=== PATIENT | male | born 1980 | race Caucasian/White ===

== ENCOUNTER 2019-08-15 16:50 | Emergency (ER) | payer MEDICARE, OTHER ==
[2019-08-15 16:54] VITALS: RESP 16; TEMP 97.9
--- NOTE | 2019-08-15 17:16 | ED ---
Chest Pain HPI - General Chief Complaint: Chest Pain Stated Complaint: chest pain Time Seen by Provider: 08/15/19 16:50 Source: EMS, RN notes reviewed Mode of arrival: EMS Limitations: no limitations - History of Present Illness Initial Comments: this is a 30-year-old male who presents with complaints of sharp he states initially was 8 out of 10 severity now is about 7 does get somewhat worse with pushing over that area of his chest he denies any recent cough and sneezing fevers chills nausea vomiting sweats any heavy lifting he states he was at rest Sitting in his chair when it occurred. Other complaints or modifying factorsstabbing left-sided chest pain started about 2 hours prior to arrival. MD Complaint: chest pain - Related Data Home Medications Medication Instructions Recorded Confirmed Lisinopril [Zestril] 10 mg PO DAILY 08/15/19 08/15/19 Previous Rx's Medication Instructions Recorded Ibuprofen 800 mg PO Q6HR PRN #20 tablet 08/15/19 Allergies Allergy/AdvReac Type Severity Reaction Status Date / Time No Known Allergies Allergy Verified 08/15/19 17:55 Review of Systems ROS Statement: Those systems with pertinent positive or pertinent negative responses have been documented in the HPI. ROS Other: All systems not noted in ROS Statement are negative. EKG Findings - EKG Results: EKG: interpreted by MICHAEL, sinus rhythm (Normal sinus rhythm a 76. 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 History of Any Multi-Drug Resistant Organisms: None Reported Past Surgical History: Hernia Repair, Orthopedic Surgery Additional Past Surgical History / Comment(s): LT KNEE SCOPE Past Anesthesia/Blood Transfusion Reactions: No Reported Reaction, Family History of Problems w/ Anesthesia Additional Past Anesthesia/Blood Transfusion Reaction / Comment(s): HIS FATHER HAS DIFFICULTY WAKING UP POST-OP Past Psychological History: No Psychological Hx Reported Smoking Status: Never smoker Past Alcohol Use History: None Reported Past Drug Use History: None Reported - Past Family History Father Family Medical History: Deep Vein Thrombosis (DVT), Pulmonary Embolus Mother Family Medical History: Cancer Additional Family Medical History / Comment(s): BREAST CANCER General Exam - General Exam Comments Initial Comments: This is a well-developed well-nourished awake alert oriented 3 male Limitations: no limitations General appearance: alert, anxious Head exam: Present: atraumatic, normocephalic, normal inspection Eye exam: Present: normal appearance, PERRL, EOMI. Absent: scleral icterus, conjunctival injection, periorbital swelling ENT exam: Present: normal exam, mucous membranes moist Neck exam: Present: normal inspection, full ROM. Absent: tenderness, meningismus, lymphadenopathy Respiratory exam: Present: normal lung sounds bilaterally, chest wall tenderness (Reproducible tenderness palpation over left costal sternal margin no step-off or crepitation palpation does reproduce the patient's pain). Absent: respiratory distress, wheezes, rales, rhonchi, stridor Cardiovascular Exam: Present: regular rate, normal rhythm, normal heart sounds. Absent: systolic murmur, diastolic murmur, rubs, gallop, clicks GI/Abdominal exam: Present: soft, normal bowel sounds. Absent: distended, tenderness, guarding, rebound, rigid Extremities exam: Present: normal inspection, full ROM, normal capillary refill. Absent: tenderness, pedal edema, joint swelling, calf tenderness Back exam: Present: normal inspection Neurological exam: Present: alert, oriented X3, CN II-XII intact Psychiatric exam: Present: normal affect, normal mood Skin exam: Present: warm, dry, intact, normal color. Absent: rash Course Vital Signs 08/15/19 08/15/19 16:51 18:50 Temperature 97.9 F Pulse Rate 76 67 Respiratory 16 16 Rate Blood Pressure 144/98 126/82 O2 Sat by Pulse 99 96 Oximetry Chest Pain MDM - MDM I did review the imaging and report no acute findings. Patient is feeling improved after IV fluids and pain medication the presentation is consistent with costochondritis/musculoskeletal chest pain. Patient will be discharged on appropriate medication we did discuss this he is in agreement. He also is feeling much improved Disposition Clinical Impression: Costochondritis, Chest wall syndrome Disposition: HOME SELF-CARE Condition: Good Instructions (If sedation given, give patient instructions): Costochondritis (ED) Additional Instructions: Prescriptions sent to your preferred [facility] pharmacy Prescriptions: Ibuprofen 800 mg PO Q6HR PRN #20 tablet PRN Reason: Pain Is patient prescribed a controlled substance at d/c from ED?: No Referrals: Deyanira Mishra DO [Primary Care Provider] - 1-2 days
[2019-08-15 17:17] LABS: Basophils % (A) 0 %; Eosinophils # (A) 0.2 k/uL (0-0.7); Eosinophils % (A) 2 %; HCT 45.4 % (39.0-53.0); HGB 14.8 gm/dL (13.0-17.5); Lymphocytes # (A) 2.1 k/uL (1.0-4.8); Lymphocytes % (A) 26 %; MCH 28.8 pg (25.0-35.0); MCHC 32.5 g/dL (31.0-37.0); MCV 88.5 fL (80.0-100.0); Mean Platelet Volume 7.7; Monocytes # (A) 0.4 k/uL (0-1.0); Monocytes % (A) 4 %; Neutrophils # (A) 5.2 k/uL (1.3-7.7); Neutrophils % (A) 65 %; Platelet Count 213 k/uL (150-450); RBC 5.13 m/uL (4.30-5.90); RDW 13.2 % (11.5-15.5)
[2019-08-15 17:25] LABS: ALT 16 U/L (4-49); AST 23 U/L (17-59); African American GFR (CKD) >90 (>60 ml/min/1.73 sqM); Albumin 4.1 g/dL (3.5-5.0); Alkaline Phosphatase 74 U/L (38-126); Anion Gap 6 mmol/L; Blood Urea Nitrogen 6 mg/dL (9-20); Calcium 9.3 mg/dL (8.4-10.2); Carbon Dioxide 27 mmol/L (22-30); Chloride 106 mmol/L (98-107); Creatine Kinase 88 U/L (55-170); Glucose 93 mg/dL (74-99); Non-African American GFR(CKD) >90 (>60 ml/min/1.73 sqM); Potassium 3.9 mmol/L (3.5-5.1); Sodium 139 mmol/L (137-145); Total Bilirubin 1.7 mg/dL (0.2-1.3)
--- NOTE | 2019-08-15 17:50 | XR ---
EXAMINATION TYPE: XR chest 2V DATE OF EXAM: 08/15/2019 COMPARISON: Chest x-ray August 31, 2012 HISTORY: Chest pain radiating to left arm. TECHNIQUE: Frontal and lateral views of the chest are obtained. FINDINGS: There is no focal air space opacity, pleural effusion, or pneumothorax seen. The cardiac silhouette size is within normal limits. The osseous structures are intact. Overlying EKG leads red emonstrated. IMPRESSION: No acute process. No significant change from prior.
[2019-08-15 17:59] LABS: D-Dimer <0.17 mg/L FEU (<0.60); Partial Thromboplastin Time 26.2 sec (22.0-30.0); Prothrombin Time 10.1 sec (9.0-12.0)
[2019-08-15] MEDS ORDERED: SODIUM CHLORIDE 0.9% 1,000 ML IV STA (18:49)
[2019-08-15 18:51] VITALS: BP 126/82; PULSE 67
== END 2019-08-15 19:46 | disposition home or self-care (01) ==
LOC: EC 16:50
DX: M94.0 Chondrocostal junction syndrome [Tietze] (principal); M10.9 Gout, unspecified; M62.81 Muscle weakness (generalized); Z99.89 Dependence on other enabling machines and devices; Z98.890 Other specified postprocedural states
CPT/HCPCS: 36415; 71046; 80053; 82550; 83690; 83735; 83880; 84484; 85025; 85379; 85610; 85730; 93005; 96360; 99285

== ENCOUNTER 2019-09-04 21:45 | Emergency (ER) | payer MEDICARE, OTHER ==
[2019-09-04] MEDS ORDERED: SODIUM CHLORIDE 0.9% 1,000 ML IV STA (22:26)
[2019-09-04] MEDS ORDERED: KETOROLAC 30 MG/ML 1 ML VIAL IVP STA (22:26)
--- NOTE | 2019-09-04 22:26 | ED ---
Abdominal Pain HPI - General Chief Complaint: Abdominal Pain Stated Complaint: Abd Pain Time Seen by Provider: 09/04/19 21:55 Source: patient Mode of arrival: ambulatory Limitations: no limitations - History of Present Illness Initial Comments: Patient is a 38-year-old male with past history of Njpazjn-Ojeew-Xkbch who presents emergency room with reported left lower quadrant abdominal pain. Patient states that the pain has been present for the past week and is progressively getting worse. States it radiates into his left groin. He has associated hematuria. Denies dysuria or difficulty voiding. Does report difficulty having bowel movement. He has not attempted to take any medications at home for his symptoms. Denies any fevers or chills. No melenic stools or hematochezia. Denies any testicular pain or swelling. No concern for sexually transmitted infections. There are no other alleviating, physician and laughing factors - Related Data Home Medications Medication Instructions Recorded Confirmed Lisinopril [Zestril] 10 mg PO DAILY 08/15/19 09/04/19 Previous Rx's Medication Instructions Recorded Acetaminophen-Codeine 300-30mg 1 tab PO Q6H PRN 3 Days #12 tablet 09/05/19 [Tylenol w/codeine #3] Docusate [Colace] 100 mg PO BID #30 capsule 09/05/19 Polyethylene Glycol 3350 [Miralax] 17 gm PO DAILY #527 gm 09/05/19 Allergies Allergy/AdvReac Type Severity Reaction Status Date / Time No Known Allergies Allergy Verified 09/04/19 23:13 Review of Systems ROS Statement: Those systems with pertinent positive or pertinent negative responses have been documented in the HPI. ROS Other: All systems not noted in ROS Statement are negative. Past Medical History Past Medical History: Musculoskeletal Disorder Additional Past Medical History / Comment(s): [id number] DISEASE (MUSCL E WEAKNESS IN ARMS AND LEGS)-HE WEARS BRACES ON HIS LEGS., RECENT EPISODE OF GOUT IN HIS FOOT(STATES HE RECEIVED 2 INJECTIONS). History of Any Multi-Drug Resistant Organisms: None Reported Past Surgical History: Hernia Repair, Orthopedic Surgery Additional Past Surgical History / Comment(s): LT KNEE SCOPE Past Anesthesia/Blood Transfusion Reactions: No Reported Reaction, Family History of Problems w/ Anesthesia Additional Past Anesthesia/Blood Transfusion Reaction / Comment(s): HIS FATHER HAS DIFFICULTY WAKING UP POST-OP Past Psychological History: No Psychological Hx Reported Smoking Status: Current every day smoker Past Alcohol Use History: None Reported Past Drug Use History: None Reported - Past Family History Father Family Medical History: Deep Vein Thrombosis (DVT), Pulmonary Embolus Mother Family Medical History: Cancer Additional Family Medical History / Comment(s): BREAST CANCER General Exam Limitations: no limitations General appearance: alert, in no apparent distress Head exam: Present: atraumatic, normocephalic, normal inspection Eye exam: Present: normal appearance, PERRL, EOMI. Absent: scleral icterus, conjunctival injection, periorbital swelling ENT exam: Present: normal exam, mucous membranes moist Neck exam: Present: normal inspection. Absent: tenderness, meningismus, lymphadenopathy Respiratory exam: Present: normal lung sounds bilaterally. Absent: respiratory distress, wheezes, rales, rhonchi, stridor Cardiovascular Exam: Present: regular rate, normal rhythm, normal heart sounds. Absent: systolic murmur, diastolic murmur, rubs, gallop, clicks GI/Abdominal exam: Present: soft, normal bowel sounds. Absent: distended, tenderness, guarding, rebound, rigid Extremities exam: Present: normal inspection, full ROM, normal capillary refill. Absent: tenderness, pedal edema, joint swelling, calf tenderness Back exam: Present: normal inspection Neurological exam: Present: alert, oriented X3, CN II-XII intact Psychiatric exam: Present: normal affect, normal mood Skin exam: Present: warm, dry, intact, normal color. Absent: rash Course Vital Signs 09/04/19 09/04/19 21:51 23:38 Temperature 98.6 F 98 F Pulse Rate 97 77 Respiratory 18 16 Rate Blood Pressure 125/74 144/85 O2 Sat by Pulse 98 99 Oximetry Medical Decision Making - Medical Decision Making Upon arrival the patient is placed into room 5. A thorough history and physical exam was performed. Patient is hooked to continuous pulse ox and cardiac monitoring. Abdomen remained soft without peritoneal signs. Lab restudies were conducted the patient provides a urine sample. Urinalysis is positive for moderate blood, 127 red blood cells and few budding yeast. I originally completed a KUB on the patient which demonstrates a calculus in the left renal pelvis. The patient was then sent back for an abdominal CT which demonstrates a calculus which is significantly increased in size. This is most likely the etiology of the patient's hematuria. I did discuss the diagnosis, differential and treatment options. At this time the patient will be given a prescription for Tylenol 3's as well as final 3 starter pack for his increased pain. Did inform him that if he takes his medication he will have worsening constipation. I did recommend that he take MiraLAX and Colace in addition to this medication. Call and follow up with urology for possible surgical options of his large renal stone. Return to the emergency room for any new or worsening symptoms. Patient was in agreement treatment plan is discharged home in stable condition - Lab Data Result diagrams: 09/04/19 22:30 09/04/19 22:30 Lab Results 09/04/19 09/04/19 09/04/19 Range/Units 22:30 22:30 22:30 WBC 8.0 (3.8-10.6) k/uL RBC 5.24 (4.30-5.90) m/uL Hgb 15.1 (13.0-17.5) gm/dL Hct 46.9 (39.0-53.0) % MCV 89.6 (80.0-100.0) fL MCH 28.8 (25.0-35.0) pg MCHC 32.2 (31.0-37.0) g/dL RDW 13.4 (11.5-15.5) % Plt Count 237 (150-450) k/uL Neutrophils % 63 % Lymphocytes % 27 % Monocytes % 5 % Eosinophils % 2 % Basophils % 0 % Neutrophils # 5.0 (1.3-7.7) k/uL Lymphocytes # 2.2 (1.0-4.8) k/uL Monocytes # 0.4 (0-1.0) k/uL Eosinophils # 0.2 (0-0.7) k/uL Basophils # 0.0 (0-0.2) k/uL PT 9.9 (9.0-12.0) sec INR 1.0 (<1.2) APTT 24.7 (22.0-30.0) sec Sodium (137-145) mmol/L Potassium (3.5-5.1) mmol/L Chloride (98-107) mmol/L Carbon Dioxide (22-30) mmol/L Anion Gap mmol/L BUN (9-20) mg/dL Creatinine (0.66-1.25) mg/dL Est GFR (CKD-EPI)AfAm (>60 ml/min/1.73 sqM) Est GFR (CKD-EPI)NonAf (>60 ml/min/1.73 sqM) Glucose (74-99) mg/dL Plasma Lactic Acid Andre (0.7-2.0) mmol/L Calcium (8.4-10.2) mg/dL Total Bilirubin (0.2-1.3) mg/dL AST (17-59) U/L ALT (4-49) U/L Alkaline Phosphatase (38-126) U/L Total Protein (6.3-8.2) g/dL Albumin (3.5-5.0) g/dL Lipase (23-300) U/L Urine Color Yellow Urine Appearance Clear (Clear) Urine pH 5.5 (5.0-8.0) Ur Specific [place] 1.021 (1.001-1.035) Urine Protein Trace H (Negative) Urine Glucose (UA) Negative (Negative) Urine Ketones Trace H (Negative) Urine Blood Moderate H (Negative) Urine Nitrite Negative (Negative) Urine Bilirubin Negative (Negative) Urine Urobilinogen <2.0 (<2.0) mg/dL Ur Leukocyte Esterase Negative (Negative) Urine RBC 127 H (0-5) /hpf Urine WBC 3 (0-5) /hpf Urine Mucus Moderate H (None) /hpf Urine Yeast (Budding) Few H (None) /hpf 09/04/19 09/04/19 Range/Units 22:30 22:30 WBC (3.8-10.6) k/uL RBC (4.30-5.90) m/uL Hgb (13.0-17.5) gm/dL Hct (39.0-53.0) % MCV (80.0-100.0) fL MCH (25.0-35.0) pg MCHC (31.0-37.0) g/dL RDW (11.5-15.5) % Plt Count (150-450) k/uL Neutrophils % % Lymphocytes % % Monocytes % % Eosinophils % % Basophils % % Neutrophils # (1.3-7.7) k/uL Lymphocytes # (1.0-4.8) k/uL Monocytes # (0-1.0) k/uL Eosinophils # (0-0.7) k/uL Basophils # (0-0.2) k/uL PT (9.0-12.0) sec INR (<1.2) APTT (22.0-30.0) sec Sodium 139 (137-145) mmol/L Potassium 4.1 (3.5-5.1) mmol/L Chloride 107 (98-107) mmol/L Carbon Dioxide 24 (22-30) mmol/L Anion Gap 8 mmol/L BUN 11 (9-20) mg/dL Creatinine 0.69 (0.66-1.25) mg/dL Est GFR (CKD-EPI)AfAm >90 (>60 ml/min/1.73 sqM) Est GFR (CKD-EPI)NonAf >90 (>60 ml/min/1.73 sqM) Glucose 93 (74-99) mg/dL Plasma Lactic Acid Andre 0.9 (0.7-2.0) mmol/L Calcium 9.5 (8.4-10.2) mg/dL Total Bilirubin 1.3 (0.2-1.3) mg/dL AST 22 (17-59) U/L ALT 14 (4-49) U/L Alkaline Phosphatase 63 (38-126) U/L Total Protein 6.9 (6.3-8.2) g/dL Albumin 4.1 (3.5-5.0) g/dL Lipase 73 (23-300) U/L Urine Color Urine Appearance (Clear) Urine pH (5.0-8.0) Ur Specific [place] (1.001-1.035) Urine Protein (Negative) Urine Glucose (UA) (Negative) Urine Ketones (Negative) Urine Blood (Negative) Urine Nitrite (Negative) Urine Bilirubin (Negative) Urine Urobilinogen (<2.0) mg/dL Ur Leukocyte Esterase (Negative) Urine RBC (0-5) /hpf Urine WBC (0-5) /hpf Urine Mucus (None) /hpf Urine Yeast (Budding) (None) /hpf Disposition Clinical Impression: Left lower quadrant abdominal pain, Left renal stone Disposition: HOME SELF-CARE Condition: Stable Instructions (If sedation given, give patient instructions): Kidney Stones (ED) Additional Instructions: Please follow up with the primary care doctor. Return to the emergency room for any new or worsening symptoms Prescriptions: Docusate [Colace] 100 mg PO BID #30 capsule Polyethylene Glycol 3350 [Miralax] 17 gm PO DAILY #527 gm Acetaminophen-Codeine 300-30mg [Tylenol w/codeine #3] 1 tab PO Q6H PRN 3 Days #12 tablet PRN Reason: Pain Is patient prescribed a controlled substance at d/c from ED?: Yes When asked, does pt state using other controlled substances?: No If prescribed controlled substance>3 days was MAPS reviewed?: Prescribed <3 Days If opioid is for acute pain is fill amount 7 days or less?: Yes If Rx opioid, was Start Talking consent form obtained?: Yes Referrals: Deyanira Mishra DO [Primary Care Provider] - 1-2 days Dae Reed MD [STAFF PHYSICIAN] - 1-2 days Time of Disposition: 00:25
[2019-09-04 22:39] LABS: Basophils % (A) 0 %; Eosinophils # (A) 0.2 k/uL (0-0.7); Eosinophils % (A) 2 %; HCT 46.9 % (39.0-53.0); HGB 15.1 gm/dL (13.0-17.5); Lymphocytes # (A) 2.2 k/uL (1.0-4.8); Lymphocytes % (A) 27 %; MCH 28.8 pg (25.0-35.0); MCHC 32.2 g/dL (31.0-37.0); MCV 89.6 fL (80.0-100.0); Mean Platelet Volume 8.3; Monocytes # (A) 0.4 k/uL (0-1.0); Monocytes % (A) 5 %; Neutrophils % (A) 63 %; Platelet Count 237 k/uL (150-450); RBC 5.24 m/uL (4.30-5.90); RDW 13.4 % (11.5-15.5)
[2019-09-04 22:47] LABS: ALT 14 U/L (4-49); AST 22 U/L (17-59); African American GFR (CKD) >90 (>60 ml/min/1.73 sqM); Albumin 4.1 g/dL (3.5-5.0); Alkaline Phosphatase 63 U/L (38-126); Anion Gap 8 mmol/L; Blood Urea Nitrogen 11 mg/dL (9-20); Calcium 9.5 mg/dL (8.4-10.2); Carbon Dioxide 24 mmol/L (22-30); Chloride 107 mmol/L (98-107); Glucose 93 mg/dL (74-99); Non-African American GFR(CKD) >90 (>60 ml/min/1.73 sqM); Potassium 4.1 mmol/L (3.5-5.1); Sodium 139 mmol/L (137-145); Total Bilirubin 1.3 mg/dL (0.2-1.3); Total Protein 6.9 g/dL (6.3-8.2)
[2019-09-04 22:55] LABS: Partial Thromboplastin Time 24.7 sec (22.0-30.0); Prothrombin Time 9.9 sec (9.0-12.0)
[2019-09-04 22:57] LABS: Appearance,Urine Clear (Clear); Bilirubin,Urine Negative (Negative); Blood,Urine Moderate (Negative); Budding Yeast,Urine Few /hpf; Color,Urine Yellow; Glucose,Urine (UA) Negative (Negative); Ketones,Urine Trace (Negative); Leukocyte Esterase,Urine Negative (Negative); Mucus,Urine Moderate /hpf; Nitrite,Urine Negative (Negative); PH, Urine 5.5 (5.0-8.0); Protein,Urine Trace (Negative); RBC,Urine 127 /hpf (0-5); Specific Gravity,Urine 1.021 (1.001-1.035); Urobilinogen,Urine <2.0 mg/dL (<2.0); WBC,Urine 3 /hpf (0-5)
--- NOTE | 2019-09-04 22:59 | XR ---
EXAMINATION TYPE: XR KUB DATE OF EXAM: 09/04/2019 COMPARISON: 04/30/2012 HISTORY: Left side pain TECHNIQUE: 2 views FINDINGS: 2 views upright were obtained and show no sign of intestinal obstruction or pneumoperitoneu m. Fecal pattern is normal. There is 1 cm calculus over the left kidney. Lung bases are clear. IMPRESSION: Nonacute abdomen. Large left renal calculus significantly increased compared to old exam.
[2019-09-04 23:39] VITALS: BP 144/85; PULSE 77; RESP 16; TEMP 98
--- NOTE | 2019-09-05 00:13 | CT ---
EXAMINATION TYPE: CT abdomen pelvis w con DATE OF EXAM: 09/05/2019 COMPARISON: 05/18/2011 HISTORY: LLQ Abd Pain CT DLP: 1188.70 mGycm Automated exposure control for dose reduction was used. CONTRAST: Performed with IV Contrast, patient injected with 100 mL of Isovue 300. Images were obtained from the diaphragm to the floor the pelvis with IV contrast. Lung bases are clear. There is no pleural effusion. Heart size is normal. There is no pericardial eff usion. Liver spleen pancreas gallbladder stomach appear normal. Bile ducts are not dilated. There is no adrenal mass. Kidneys show satisfactory contrast opacification. There is no hydronephrosi s. There are a few left renal calculi that measure up to 1.2 cm. Ureters are not dilated. There is no retroperitoneal adenopathy. Appendix is posterior and appears normal. Bladder distends smoothly. The re is no inguinal hernia. There is no free fluid in the pelvis. There is no mesenteric edema. There is no ascites or free air. There is no sign of a bowel obstructio n. I see no intestinal wall thickening. The lumbar vertebra have normal alignment. Disc spaces are fa irly normal. The posterior elements are intact. Bony pelvis appears intact. IMPRESSION: Left renal calculi significantly increased in size compared to old exam. No renal obstruction. Normal appendix.
[2019-09-05] MEDS ORDERED: ACET/COD 300 MG/30 MG STARTER PACK 6 TAB BTL PO STA (00:23)
== END 2019-09-05 00:46 | disposition home or self-care (01) ==
LOC: EC 21:45
DX: N20.0 Calculus of kidney (principal); Z79.899 Other long term (current) drug therapy
CPT/HCPCS: 99284 ×2; 96374 ×2; 96361 ×3; 36415; 80053; 83605; 83690; 85025; 85610; 85730; 81001; 74018; 74177; J1885; Q9967

== ENCOUNTER → 2022-06-14 | Outpatient (CLI) | payer MEDICARE, OTHER ==
--- NOTE | 2022-06-14 11:13 | CT ---
EXAMINATION TYPE: CT urogram wo/w con CT DLP: 4825 mGycm, Automated exposure control for dose reduction was used. DATE OF EXAM: 06/14/2022 10:39 AM COMPARISON: CT abdomen pelvis 09/04/2019 CLINICAL INDICATION:Male, 41 years old with history of R31.0 gross hematuria; PHH, Gross hematuria an d left sided flank pain. TECHNIQUE: Urogram of the abdomen and pelvis before and after the uneventful administration of 100 mL of Isovue -300 intravenously. Delayed imaging was performed. Coronal and sagittal reformats were performed. One or more CT dose reduction strategies were utilized during this examination. 2D and 3D reconstruction s are performed to assist visualization of the urinary tract on a separate workstation. FINDINGS: GENITOURINARY: RIGHT KIDNEY AND URETER: There are 3 calculi demonstrated within the upper pole with largest measurin g up to 4 mm. No hydronephrosis or hydroureter. No renal mass or other lesions. No urothelial lesions : no filling defect, dilation, stricture or wall thickening. LEFT KIDNEY AND URETER: Several calculi demonstrated with largest in the renal pelvis measuring up to 1.6 cm. Additional calculus within the inferior pole measuring up to 9 mm. No hydronephrosis or hydr oureter. No renal mass or other lesions. No urothelial lesions: no filling defect, dilation, strictur e or wall thickening. URINARY BLADDER: Normal, no calculi, mass or other lesions. REPRODUCTIVE: Unremarkable. ABDOMEN LIVER: Diffusely hypoattenuating, consistent with hepatic steatosis. No focal lesion. GALLBLADDER AND BILE DUCTS: Unremarkable PANCREAS: Unremarkable. SPLEEN: Unremarkable. ADRENAL GLANDS: Unremarkable. STOMACH AND BOWEL: Unremarkable. No evidence of bowel obstruction. PERITONEUM: No evidence of pneumoperitoneum, free fluid, or adenopathy. VASCULATURE: Unremarkable MUSCULOSKELETAL: No acute osseous abnormalities. No aggressive osseous lesion. Mild degenerative disc disease at L5-S1. SOFT TISSUE/ABDOMINAL WALL: Unremarkable. LOWER CHEST: No significant findings. IMPRESSION: 1. No evidence of renal/urothelial neoplasm. 2. Multiple bilateral renal calculi with a 1.6 cm calculus within the left renal pelvis. Contrast pas ses this on the delayed phase. No hydronephrosis. 3. Hepatic steatosis.
== END | disposition home or self-care (01) ==
LOC: RADCTMAIN 08:57
PROVIDERS: ATTEND Urology
DX: N20.0 Calculus of kidney (principal); K76.0 Fatty (change of) liver, not elsewhere classified
CPT/HCPCS: 74178; 74400; Q9967

== ENCOUNTER → 2022-08-04 | Outpatient (CLI) | payer MEDICARE, OTHER ==
[2022-08-04 16:12] LABS: Blood Urea Nitrogen 9.2 mg/dL (9.0-27.0); Calcium 9.6 mg/dL (8.7-10.3); Carbon Dioxide 28.1 mmol/L (21.6-31.8); Chloride 104 mmol/L (96-109); Glucose 102 mg/dL (70-110); Potassium 4.6 mmol/L (3.5-5.5); Sodium 144 mmol/L (135-145)
[2022-08-04 19:40] LABS: Basophils # (A) 0.05 X 10*3/uL (0.00-0.10); Basophils % (A) 0.7 %; Eosinophils # (A) 0.46 X 10*3/uL (0.04-0.35); Eosinophils % (A) 6.2 %; HCT 45.7 % (39.6-50.0); HGB 14.7 d/dL (12.0-15.0); Lymphocytes # (A) 2.89 X 10*3/uL (0.90-5.00); Lymphocytes % (A) 39.2 %; MCH 28.9 pg (27.0-32.0); MCHC 32.2 d/dL (32.0-37.0); Mean Platelet Volume 10.5 FL (9.5-12.2); Monocytes # (A) 0.69 X 10*3/uL (0.20-1.00); Monocytes % (A) 9.4 %; NRBC Per 100 WBC 0 X 10*3/uL (0.00-0.01); Neutrophils # (A) 3.27 X 10*3/uL (1.80-7.70); Neutrophils % (A) 44.4 %; Platelet Count 247 X 10*3/uL (140-440); RBC 5.08 X 10*6/uL (4.40-5.60); RDW 13.8 % (11.5-14.5); WBC 7.37 X 10*3/uL (4.50-10.00)
[2022-08-04 22:23] LABS: Appearance,Urine Clear (Clear); Bacteria,Urine None Seen (None Seen); Bilirubin,Urine Negative (Negative); Blood,Urine Small (Negative); Color,Urine Yellow (Yellow); Ketones,Urine Negative (Negative); Nitrite,Urine Negative (Negative); PH, Urine 5.5; Specific Gravity,Urine 1.013 (1.001-1.030); Urobilinogen,Urine 0.2
== END | disposition home or self-care (01) ==
LOC: LABPAT 08:07
PROVIDERS: ATTEND Urology
DX: Z01.812 Encounter for preprocedural laboratory examination (principal); N20.0 Calculus of kidney
CPT/HCPCS: 80048; 81001; 85025; 87086

== ENCOUNTER 2022-08-10 10:41 | Day surgery (SDC) | payer MEDICARE, OTHER ==
[2022-08-09 08:22] VITALS: BMI 31.1
--- NOTE | 2022-08-10 07:55 | P.HPIHPCON ---
History of Present Illness H&P Date: 08/10/22 Chief Complaint: Left renal stones This is a 41-year-old male with history of gross hematuria and symptomatically flank pain. Underwent a CT urogram showed evidence of significant stone burden within the left kidney, total stone burden measured greater than 2 cm. Discussed with him given his gross hematuria and the significant stone burden and his symptoms I do recommend proceeding with surgical intervention. Option of a PCNL versus ureteroscopy versus ESWL was discussed with him. Risk and benefit of each was discussed in detail, discussed with him PCNL would be the most definitive way to address his stone. He agreed to proceed with a percutaneous nephrolithotomy. Risks of bleeding infection injury to the kidney, injury to nearby organs which includes but not limited to lung, spleen and bowel. Risk of anesthesia was also discussed Consent for Procedure: I have explained the operation/procedure to the patient, including the risks, benefits, side effects, alternative therapies (including not receiving the proposed treatment or service), the likelihood of the patient achieving his/her goals, and potential recuperation problems for the procedure/sedation/analgesia, as well as any blood products, if indicated. I also explained to the patient the risks, benefits and side effects of the alternatives, as well as the risks related to not receiving the proposed procedure, care, treatment, or services. Past Medical History Past Medical History: Hypertension, Musculoskeletal Disorder, Sleep Apnea/CPAP/BIPAP Additional Past Medical History / Comment(s): [id number]-[id number] DISEASE (MUSCLE WEAKNESS IN ARMS AND LEGS)-HE WEARS BRACES ON HIS LEGS., HX GOUT., PAST HTN., NEW DIAGNOSIS SLEEP APNEA (NO MACHINE YET)., KIDNEY STONES SINCE 13 YRS OLD. History of Any Multi-Drug Resistant Organisms: None Reported Past Surgical History: Hernia Repair, Orthopedic Surgery Additional Past Surgical History / Comment(s): LT KNEE SCOPE Past Anesthesia/Blood Transfusion Reactions: No Reported Reaction, Family History of Problems w/ Anesthesia Additional Past Anesthesia/Blood Transfusion Reaction / Comment(s): HIS FATHER HAS DIFFICULTY WAKING UP POST-OP Past Psychological History: No Psychological Hx Reported Smoking Status: Never smoker Past Alcohol Use History: None Reported Past Drug Use History: None Reported - Past Family History Father Family Medical History: Deep Vein Thrombosis (DVT), Pulmonary Embolus Mother Family Medical History: Cancer Additional Family Medical History / Comment(s): BREAST CANCER Medications and Allergies Home Medications Medication Instructions Recorded Confirmed Type traZODone HCL 200 mg PO HS 08/09/22 08/09/22 History Allergies Allergy/AdvReac Type Severity Reaction Status Date / Time No Known Allergies Allergy Verified 08/09/22 08:05 Surgical - Exam - General no distress, moderate pain - Eyes normal ocular movement, no pale - ENT normal nares, normal mucosa - Respiratory normal expansion, normal respiratory effort - Abdomen Abdomen: soft, non tender - Psychiatric oriented to time, oriented to person, oriented to place Assessment and Plan Assessment: OR for left PCNL
[~2022-08-10 10:41] MED LIST: DEXAMETHASONE SOD PHOSPHATE 4 MG/ML 1 ML VIAL IV ONE; HYDROmorphone 0.5 MG/0.5 ML SYRINGE IVP PRN; LIDOCAINE 1% (10MG/ML) FOR IV START INTRADERMA PRN; ONDANSETRON 4 MG/2 ML VIAL IVP PRN; droPERidol 5 MG/2 ML VIAL IVP ONE
--- NOTE | 2022-08-10 11:21 | XR ---
EXAMINATION TYPE: XR KUB DATE OF EXAM: 08/10/2022 COMPARISON: CT abdomen and pelvis 09/04/2019, KUB radiograph 09/04/2019 HISTORY: Left renal stone TECHNIQUE: Supine KUB view was performed with 2 radiographs. FINDINGS: Small bowel demonstrates no evidence for dilatation or air fluid levels. Gas and fecal material is seen in non-distended colon. There are 3 distinct left renal calcifications with the largest measuring 2.4 x 2.0 cm with an adjace nt 8 mm calcification. There is a lower pole constipation measuring up to 1.2 cm. No definitive right renal calculi. No definitive ureteral calculi bilaterally. No definitive pelvic calcifications. The lung bases are clear. The osseous structures are intact. IMPRESSION: There are 3 left renal calculi identified with largest measuring up to 2.4 cm.
[2022-08-10] MEDS: LACTATED RINGERS 1,000 ML IV SCH (11:43)
[2022-08-10] MEDS ORDERED: fentaNYL (PF) 50 MCG/ML 2 ML AMP ONE (13:10)
[2022-08-10] MEDS ORDERED: KETOROLAC 15 MG/ML 1 ML VIAL ONE (13:10)
[2022-08-10] MEDS ORDERED: PROPOFOL 10 MG/ML 20 ML VIAL IV ONE (13:10)
[2022-08-10] MEDS ORDERED: MIDAZOLAM 2 MG/2 ML VIAL ONE (13:10)
[2022-08-10] MEDS ORDERED: LIDOCAINE 2% INJ 20 MG/ML (2 ML VIAL) ONE (13:10)
[2022-08-10] MEDS ORDERED: HYDROmorphone (PF) 1 MG/ML ONE (13:10)
[2022-08-10] MEDS ORDERED: ROCURONIUM 10 MG/ML (5 ML VIAL) IV ONE (13:10)
[2022-08-10] MEDS ORDERED: SUCCINYLCHOLINE CHLORIDE 200 MG/10 ML VIAL IV ONE (13:10)
[2022-08-10] MEDS ORDERED: IOPAMIDOL-370 100ML BTL MISCELLANE ONE ×2 (13:58→15:04)
[2022-08-10] MEDS ORDERED: LACTATED RINGERS 1,000 ML IV ONE (14:05)
[2022-08-10] MEDS ORDERED: ACETAMINOPHEN TAB 325 MG TAB PO PRN (15:44)
[2022-08-10] MEDS ORDERED: ONDANSETRON 4 MG/2 ML VIAL IVP PRN (15:44)
[2022-08-10] MEDS ORDERED: MAG HYDROX/AL HYDROX/SIMETH 30 ML CUP PO PRN (15:44)
--- NOTE | 2022-08-10 15:55 | P.OP ---
Date of Procedure: 08/10/22 Preoperative Diagnosis: Left renal stone Postoperative Diagnosis: same Procedure(s) Performed: Cystoscopy, left ureteral catheterization, percutaneous nephrolithotomy ( > 2cm), antegrade nephrostogram nephrostomy tube placement Implants: none Anesthesia: CECILIA Surgeon: Peter De La O Estimated Blood Loss (ml): 150 Pathology: other (left renal stone) Condition: stable Disposition: PACU Indications for Procedure: This is a 41-year-old male with history of gross hematuria and symptomatically flank pain. Underwent a CT urogram showed evidence of significant stone burden within the left kidney, total stone burden measured greater than 2 cm. Discusse d with him given his gross hematuria and the significant stone burden and his symptoms I do recommend proceeding with surgical intervention. Option of a PCNL versus ureteroscopy versus ESWL was discussed with him. Risk and benefit of each was discussed in detail, discussed with him PCNL would be the most definitive way to address his stone. He agreed to proceed with a percutaneous nephrolithotomy. Risks of bleeding infection injury to the kidney, injury to nearby organs which includes but not limited to lung, spleen and bowel. Risk of anesthesia was also discussed Operative Findings: Large left-sided renal pelvis stone, multiple smaller stones throughout the kidney Description of Procedure: Patient brought to the operating room, general anesthesia was induced. He was prepped and draped in sterile fashion and placed in a frog leg position on the stretcher. Next a cystoscopy fitted 21-Sol[place] Islander sheath was inserted per urethra, brief cystoscopy was performed which showed no abnormality within the bladder. Next the left ureteral orifice was intubated with 8-[place] Islander balloon occlusion catheter, the catheter was advanced into the renal pelvis, the scope was removed and a 16-[place] Islander Carlin was placed with return of clear urine, both the catheter and the ureteral occlusion balloon was taped, at this point the patient was placed in prone position, all pressure points were padded. The left flank was prepped and draped in sterile fashion. Next access was obtained by Dr. Rodriguez, please see his portion of the procedure. Access was in the upper pole above the 12th rib. After 2 wires were down the ureter next a 30 Fr NephroMax balloon was advanced over the wire under fluoroscopy, the tract was dilated to 30-Solomon Islander. Next a 30-Sol[place] Islander access sheath was advanced over the balloon and into the collecting system. Next the rigid nephroscope was inserted through the access sheath, a large stone was encountered in the renal pelvis, using the ultrasound lithotripter the stone was fragmented, stone fragments were removed using the grasper, there were multiple stones throughout the kidney that were grasped, complete nephroscopy was performed with the rigid nephroscope and the flexible cystoscope which showed no residual stones or sizable fragments. On fluoroscopy there was no radiopaque densities. Ureteroscopy of the proximal ureter was also performed which showed no evidence of stones down the ureter. At this time a 10-[place] Islander nephrostomy tube was advanced over the wire. Antegrade nephrostogram was performed which showed contrast going down the ureter no evidence of contrast extravasation. The subcutaneous tissue was closed with 2-0 Vicryl, and the skin was closed with 2-0 silk, the tube was secured to the skin using a silk suture. Sterile dressing was applied. Patient was awakened from anesthesia and taken to recovery in stable condition
[2022-08-10] MEDS ORDERED: ceFAZolin 1 GM in SODIUM CHLORIDE 0.9% 100 ML IVPB SCH (16:00)
[2022-08-10] MEDS: HYDROcodone/APAP 5-325MG 1 EACH TAB PO PRN (18:25)
[2022-08-10] MEDS: MORPHINE SULFATE 2 MG/ML SYRINGE IVP PRN ×2 (18:29→22:41)
[2022-08-10] MEDS: KETOROLAC 15 MG/ML 1 ML VIAL IVP SCH (18:45)
[2022-08-10] MEDS: DEXTROSE 5%-0.45% NACL 1,000 ML IV SCH (18:46)
[2022-08-10] MEDS ORDERED: traZODone HCL 100 MG TAB PO SCH (21:00)
[2022-08-10] MEDS: HEPARIN SODIUM,PORCINE/PF 5,000 UNIT/0.5 ML SYRINGE SQ SCH (22:40)
[2022-08-11] MEDS: HYDROcodone/APAP 5-325MG 1 EACH TAB PO PRN ×2 (00:17→09:52)
[2022-08-11] MEDS: KETOROLAC 15 MG/ML 1 ML VIAL IVP SCH ×3 (00:17→11:56)
[2022-08-11] MEDS: DEXTROSE 5%-0.45% NACL 1,000 ML IV SCH ×2 (01:48→13:57)
[2022-08-11] MEDS: MORPHINE SULFATE 2 MG/ML SYRINGE IVP PRN ×2 (03:37→08:27)
[2022-08-11] MEDS: HEPARIN SODIUM,PORCINE/PF 5,000 UNIT/0.5 ML SYRINGE SQ SCH (08:27)
[2022-08-11 08:44] VITALS: TEMP 97.9
--- NOTE | 2022-08-11 08:44 | FL ---
EXAMINATION TYPE: FL Perc Nephrostomy New Access DATE OF EXAM: 08/10/2022 COMPARISON: 06/14/2022 HISTORY: Left renal calculus Procedure had been discussed with the patient by Dr. De La O, risks, benefits, alternatives, were di scussed and any questions were answered. Informed consent was obtained. The patient was in a semipr one position prepped and draped on the OR table in the usual sterile fashion. Utilizing a 15 cm juan th Chiba needle a single pass was made into a lower pole posterior calyx under fluoroscopic guidance. An 0.018 guidewire is passed through the needle and there was placement of a 6-Dutch catheter paredes th system. There was conversion to a 0.035 system was performed with passage of a guidewire into th e ureter utilizing a directional catheter. A second safety wire was placed. Remaining portion of pr ocedure performed by . Approximately 45.853 DAP of fluoroscopy was provided. IMPRESSION: 1. Successful intraoperative left nephrostomy prior to nephrolithotomy.
[2022-08-11] MEDS: LACTATED RINGERS 1,000 ML IV SCH (09:11)
[2022-08-11 14:35] VITALS: BP 124/75; PULSE 68; RESP 18
--- NOTE | 2022-08-13 06:17 | P.DS ---
Providers Expected date of discharge: 08/11/22 Attending physician: Peter De La O MD Primary care physician: Lance Mishra MD Hospital Course: On the day of admission, the patient underwent an uncomplicated left PCNL. The perioperative course was unremarkable. The patient remained afebrile with stable vital signs. On the first postoperative day, both the nephrostomy tube and Carlin catheter were draining clear urine. There was no drainage around the left nephrostomy tube site. The abdomen was soft and nontender. The patient reported moderate incisional discomfort. He was tolerating diet. The Carlin catheter was removed. He subsequently felt well enough that he was ready to be discharged home. Procedures: Left percutaneous nephrolithotomy (PCNL) on 08/10/2022 Patient Condition at Discharge: Good Plan - Discharge Summary Discharge Rx Participant: Yes New Discharge Prescriptions: New HYDROcodone/APAP 10-325MG [[place] 10-325] 1 tab PO Q6HR PRN 3 Days #12 tab PRN Reason: Moderate To Severe Pain (4-10) HYDROcodone/APAP 5-325MG [[place] 5-325] 1 - 2 tab PO Q6HR PRN #12 tab PRN Reason: Pain No Action traZODone HCL 200 mg PO HS Discharge Medication List traZODone HCL 200 mg PO HS 08/09/22 [History] HYDROcodone/APAP 10-325MG [[place] 10-325] 1 tab PO Q6HR PRN 3 Days #12 tab 08/11/22 [Rx] HYDROcodone/APAP 5-325MG [[place] 5-325] 1 - 2 tab PO Q6HR PRN #12 tab 08/11/22 [Rx] Follow up Appointment(s)/Referral(s): Peter De La O MD [STAFF PHYSICIAN] - 1 Week Patient Instructions/Handouts: Nephrostomy Tube Insertion (DC) Activity/Diet/Wound Care/Special Instructions: Discharge home with left nephrostomy tube. Avoid strenuous activity. Drink plenty of fluids. Discharge Disposition: HOME SELF-CARE
== END 2022-08-11 15:40 | disposition home or self-care (01) ==
LOC: OR 10:41 → 4SSUR 15:13 → OR 08-11 15:40
PROVIDERS: ATTEND Urology
DX: N20.0 Calculus of kidney (principal); I10 Essential (primary) hypertension; G47.30 Sleep apnea, unspecified; Z80.3 Family history of malignant neoplasm of breast; Z98.890 Other specified postprocedural states; Z79.899 Other long term (current) drug therapy
CPT/HCPCS: 50081; 86900; 86901; 86850; 88300; 50432; 74018; C1769 ×5; C2628; C1729 ×4; C1894; J2250; J0330; J1100; J0690 ×3; J2405; J3010; J2270 ×2; J1170 ×2; J1885 ×2; J2704; Q9967; J1644 ×2; J2001

== ENCOUNTER → 2022-10-18 | Outpatient (CLI) | payer MEDICARE, OTHER ==
--- NOTE | 2022-10-18 16:00 | US ---
EXAMINATION TYPE: US kidneys/renal and bladder DATE OF EXAM: 10/18/2022 COMPARISON: KUB, CT CLINICAL INDICATION: Male, 41 years old with history of N20.0 CALCULUS OF KIDNEY; H/O renal stones, p t states recent lithotripsy on the left side EXAM MEASUREMENTS: Right Kidney: 10.4 x 5.5 x 5.7 cm Left Kidney: 11.5 x 5.9 x 5.3 cm Right Kidney: No evidence of hydro, multiple nonobstructing renal calculi scattered throughout kidney , largest= 0.6cm inferior pole kidney Left Kidney: No evidence of hydro, multiple nonobstructing renal calculi scattered throughout kidney , largest= 0.6cm upper pole left kidney Bladder: wnl Bilateral Jets seen: Yes IMPRESSION: Multiple bilateral nonobstructing renal stones
== END | disposition home or self-care (01) ==
LOC: RADUSWWP 15:15
PROVIDERS: ATTEND Urology
DX: N20.0 Calculus of kidney (principal)
CPT/HCPCS: 76770

== ENCOUNTER → 2023-01-06 | Outpatient (CLI) | payer MEDICARE, OTHER ==
--- NOTE | 2023-01-06 14:11 | P.SLEEP ---
History of Present Illness DATE: 01/06/2023 CONSULTATION/NEW PATIENT EVALUATION HISTORY OF PRESENT ILLNESS/SLEEP-WAKE EVALUATION: 42-year-old gentleman had been evaluated in the sleep center for possible obstructive sleep apnea hypopnea syndrome. SLEEP SCHEDULE: Usually sleep schedule from 8 PM-2 AM until 1-2 PM. FALLING ASLEEP: Patient does have problems with falling asleep. DURING SLEEP: Patient has loud snoring, multiple awakenings from sleep 3 times with nocturia with episodes of gasping for air, stop breathing during the sleep, sleep talking. Questionable history of hypnogogical hallucinations, no sleep paralysis, or cataplexy. DURING THE DAY/WAKE STATE: In the morning patient wake up tired, falling asleep during the day. [place] sleepiness scale is 7. Patient may take nap around 3 PM. PAST MEDICAL HISTORY: History of Uqnuefl-Iwmoa-Kdqtp disorder. PAST SURGICAL HISTORY: Bilateral knee surgery, surgical treatment of kidney stones. MEDICATIONS: Quetiapine, cholestyramine. SOCIAL HISTORY: Negative for smoking, alcohol consumption occasional. FAMILY HISTORY: Hypertension, heart problems, sleep apnea, cancer. REVIEW OF SYSTEMS: Loud snoring, multiple awakenings from sleep. No fevers. No double vision. No recent chest pain. No shortness of breath. No abdominal pain. No bleeding episodes. No blood in urine. No seizure episodes. PHYSICAL EXAMINATION: GENERAL: A pleasant patient without any distress. VITAL SIGNS: BP 140/88 , HR 79 , RR 18 , weight 241.6 pounds, height 5 foot 9 inches, body mass index 35.5 . HEENT: PERRLA, EOMI. Evaluation of oropharynx showed tongue protrudes midline, low position of soft palate Mallampati 4. NECK: Supple. No JVD. Thyroid is not palpable. 17 inches in circumference. LUNGS: Clear to percussion and to auscultation. Good air exchange. No wheezing or rhonchi. HEART: S1, S2 regular. No murmurs, gallops or rubs. ABDOMEN: Soft and nontender. Bowel sounds are present. No organomegaly appreciated. EXTREMITIES: No clubbing or cyanosis. WEB DESIGNER DEVELOPER: Awake, alert, and oriented x3. Cranial nerves 2 to 7 intact. There is no fasciculation or atrophy noted. No focal deficits observed. ASSESSMENT: 1. Loud snoring, multiple awakenings from sleep, extremely low position of soft palate Mallampati 4, wide neck 17 inches in circumference. Obstructive sleep apnea hypopnea syndrome. 2. Obesity BMI 35.5. 3. History of Mqjwalh-Jvqyr-Ibclr disorder. 4. Status post bilateral knee surgery. 5 status post surgical treatment for kidney stones. PLAN: 1. Polysomnography for evaluation of patient's breathing during sleep. 2. Following plan after reading sleep study 3. Preferable position during sleep on the side. 4. No driving if patient feels any sleepiness. Patient is aware of civil and criminal liability for unsafe driving. 5. Sleep hygiene with regular sleep time for at least 7.5-8 hours. 6. Watching and losing weight. Thank you very much for referring this patient for consultation. Sincerely, Red Langley MD, PhD, FAASM. Diplomat of [place] [employer], Sleep Medicine Board by [place] [employer] [place] [employer] Call Center Rn of [facility] [place] Past Medical History Past Medical History: Musculoskeletal Disorder Additional Past Medical History / Comment(s): [id number]-[id number] DISEASE (MUSCLE WEAKNESS IN ARMS AND LEGS)-HE WEARS BRACES ON HIS LEGS., RECENT EPISODE OF GOUT IN HIS FOOT(STATES HE RECEIVED 2 INJECTIONS). History of Any Multi-Drug Resistant Organisms: None Reported Past Surgical History: Hernia Repair, Orthopedic Surgery Additional Past Surgical History / Comment(s): LT KNEE SCOPE Past Anesthesia/Blood Transfusion Reactions: No Reported Reaction, Family His tory of Problems w/ Anesthesia Additional Past Anesthesia/Blood Transfusion Reaction / Comment(s): HIS FATHER HAS DIFFICULTY WAKING UP POST-OP Past Psychological History: No Psychological Hx Reported Past Alcohol Use History: None Reported Past Drug Use History: None Reported - Past Family History Father Family Medical History: Deep Vein Thrombosis (DVT), Pulmonary Embolus Mother Family Medical History: Cancer Additional Family Medical History / Comment(s): BREAST CANCER Medications and Allergies Home Medications Medication Instructions Recorded Confirmed Type traZODone HCL 200 mg PO HS 08/09/22 08/10/22 History HYDROcodone/APAP 10-325MG [[place] 1 tab PO Q6HR PRN 3 Days #12 tab 08/11/22 Rx 10-325] HYDROcodone/APAP 5-325MG [[place] 1 - 2 tab PO Q6HR PRN #12 tab 08/11/22 Rx [id number]] Allergies Allergy/AdvReac Type Severity Reaction Status Date / Time No Known Allergies Allergy Verified 08/10/22 11:18 Sleep Note - Sleep Note Sleep Note: Temperature: Pulse Rate: Respiratory Rate: Blood Pressure: SpO2: Height: Weight: BMI: Neck Circumference:
== END ==
LOC: 3 N SLEEP 13:11
PROVIDERS: ATTEND Internal Medicine
DX: G47.33 Obstructive sleep apnea (adult) (pediatric) (principal); F17.200 Nicotine dependence, unspecified, uncomplicated; E66.9 Obesity, unspecified; Z68.35 Body mass index [BMI] 35.0-35.9, adult; G60.0 Hereditary motor and sensory neuropathy; Z96.653 Presence of artificial knee joint, bilateral
CPT/HCPCS: 99211